=== PATIENT | female | born 1980 | race Two or more races ===

== ENCOUNTER 2016-06-23 20:58 | Emergency (ER) | payer BC ==
[~2016-06-23] VITALS: Ht 157.5 cm; Wt 49.9 kg
[2016-06-23] MEDS ORDERED: IV NORMAL SALINE 1000 ML BAG IV ONE (21:45)
[2016-06-23] MEDS ORDERED: ONDANSETRON 4 MG/2 ML VIAL IV ONE (21:45)
[2016-06-23] MEDS ORDERED: HYDROMORPHONE 1 MG/1 ML DISP.SYRIN IV ONE ×2 (21:45→22:30)
[2016-06-23 21:47] LABS: *BILIRUBIN,URIN NEGATIVE (NEGATIVE); *BLOOD, URINE Trace-intact (NEGATIVE); *CLARITY,URINE CLOUDY (CLEAR); *COLOR,URINE YELLOW (YELLOW); *KETONES,URINE 2+ (NEGATIVE); *PROTEIN,URINE TRACE (NEGATIVE); *URINE HCG, QUAL NEGATIVE (NEGATIVE); *UROBILINOGEN,URINE 0.2 E.U./dl (NORMAL); LEUKOCYTE ESTERASE ,URINE NEGATIVE (NEGATIVE); NITRITE, URINE NEGATIVE (NEGATIVE); PH,URINE 5.5 (5.0-8.0); UGLUCOSE NEGATIVE (NEGATIVE)
[2016-06-23] MEDS ORDERED: ONDANSETRON 4 MG/2 ML VIAL ONE ×2 (21:56→22:38)
[2016-06-23] MEDS ORDERED: HYDROMORPHONE 1 MG/1 ML DISP.SYRIN ONE ×2 (21:56→22:38)
[2016-06-23 21:58] LABS: BACTERIA,URINE MANY /HPF (NONE SEEN); SQUAMOUS EPITHELIAL CELL,UR MANY /HPF (NONE SEEN)
[2016-06-23 22:06] LABS: BASOPHILS # (AUTO) 0.1 K/uL (0.0-8.0); BASOPHILS % (AUTO) 0.6 % (0.0-2.0); EOSINOPHILS % (AUTO) 0.4 % (0.0-7.0); HEMATOCRIT 40.9 % (37-47); HEMOGLOBIN 14.2 G/DL (12.0-16.0); LYMPHOCYTES # (AUTO) 1.9 K/uL (20.0-40.0); LYMPHOCYTES % (AUTO) 15.5 % (20.5-51.5); MEAN CORPUSCULAR HEMOGLOBIN 30.6 UUG (27.0-31.0); MEAN CORPUSCULAR HGB CONC 35 g/dL (32.0-37.0); MEAN CORPUSCULAR VOLUME 88.2 FL (81.0-99.0); MONOCYTES # (AUTO) 0.7 K/uL (2.0-10.0); NEUTROPHILS # (AUTO) 9.7 K/uL (1.8-8.9); NEUTROPHILS % (AUTO) 77.5 % (38.5-71.5); PLATELET COUNT (AUTO) 204 K/UL (150-450); RED BLOOD CELL COUNT(AUTO) 4.63 MIL/UL (4.2-5.4); RED CELL DISTRIBUTION WIDTH 13.1 % (11.5-14.5); WHITE BLOOD COUNT (AUTO) 12.4 K/UL (4.0-11.2)
[2016-06-23 22:08] LABS: CALCIUM 9.2 mg/dL (8.5-10.1); CREATININE 0.6 mg/dL (0.6-1.3); POTASSIUM 3.7 mmol/L (3.5-5.1)
--- NOTE | 2016-06-23 22:10 | NUR ---
Patient to radiology for CT scan via gurney.
[2016-06-23 22:13] LABS: ALBUMIN 3.7 g/dL (3.4-5.0); BILIRUBIN,DIRECT 0.1 mg/dL (0.0-0.2); BILIRUBIN,TOTAL 0.4 mg/dL (0.2-1.0); TOTAL PROTEIN, SERUM 7.2 g/dL (6.4-8.2)
[2016-06-23] MEDS ORDERED: ONDANSETRON IV *ER 4 MG/2 ML VIAL IV ONE (22:15)
--- NOTE | 2016-06-23 22:21 | NUR ---
Patient returned from radiology, requesting additional medication for pain, ERMD notified, orders received.
[2016-06-23] MEDS ORDERED: PHENAZOPYRIDINE HCL 100 MG TABLET ONE (23:30)
[2016-06-23] MEDS ORDERED: SULFAMETH/TRIMETH 800/160 MG TABLET PO ONE (23:30)
[2016-06-23] MEDS ORDERED: PHENAZOPYRIDINE HCL 100 MG TABLET PO ONE (23:30)
[2016-06-23] MEDS ORDERED: SULFAMETH/TRIMETH 800/160 MG TABLET ONE (23:30)
[2016-06-23] MEDS ORDERED: ONDANSETRON ODT 4 MG TAB.RAPDIS ONE (23:37)
[2016-06-23] MEDS ORDERED: ONDANSETRON ODT 4 MG TAB.RAPDIS SL ONE (23:45)
--- NOTE | 2016-06-23 23:48 | NUR ---
Patient discharged to home in stable conditon. Written and verbal after care instructions given. Patient verbalizes understanding of instructions.
== END 2016-06-23 23:55 | disposition home or self-care (01) ==
LOC: ER 21:03
DX: N39.0 Urinary tract infection, site not specified (principal); F17.200 Nicotine dependence, unspecified, uncomplicated
CPT/HCPCS: 36415; 71010; 83690; 84703; 85025; A4663; J1170; J2405; J7030; Q0162

== ENCOUNTER 2020-04-19 11:42 | Emergency (ER) | payer BC ==
[~2020-04-19] VITALS: Ht 157.5 cm; Wt 46.3 kg
[2020-04-19] MEDS ORDERED: FAMOTIDINE. 20 MG/2 ML VIAL IV ONE ×2 (12:15→12:20)
[2020-04-19] MEDS ORDERED: MAG HYDROX/AL HYDROX/SIMETH 30 ML LIQUID UDC PO ONE (12:15)
[2020-04-19] MEDS ORDERED: MAG HYDROX/AL HYDROX/SIMETH 30 ML LIQUID UDC ONE (12:19)
[2020-04-19 12:33] LABS: BASOPHILS # (AUTO) 0.1 K/uL (0.0-8.0); BASOPHILS % (AUTO) 1.1 % (0.0-2.0); EOSINOPHILS % (AUTO) 0.7 % (0.0-7.0); HEMATOCRIT 35.2 % (31.2-41.9); HEMOGLOBIN 11.2 g/dL (10.9-14.3); LYMPHOCYTES # (AUTO) 1.5 K/uL (20.0-40.0); LYMPHOCYTES % (AUTO) 27.5 % (20.5-51.5); MEAN CORPUSCULAR HEMOGLOBIN 24.1 uug (24.7-32.8); MEAN CORPUSCULAR HGB CONC 32 g/dL (32.3-35.6); MEAN CORPUSCULAR VOLUME 76.2 fL (75.5-95.3); MONOCYTES # (AUTO) 0.4 K/uL (2.0-10.0); MONOCYTES % (AUTO) 7.6 % (0.0-11.0); NEUTROPHILS # (AUTO) 3.4 K/uL (1.8-8.9); NEUTROPHILS % (AUTO) 63.1 % (38.5-71.5); PLATELET COUNT (AUTO) 282 K/uL (179-408); RED BLOOD CELL COUNT(AUTO) 4.63 MIL/uL (3.63-4.92); WHITE BLOOD COUNT (AUTO) 5.4 K/uL (3.8-11.8)
[2020-04-19 12:42] LABS: ALANINE AMINOTRANSFERASE 23 U/L (14-59); ALKALINE PHOSPHATASE 69 U/L (50-136); ASPARTATE AMINOTRANSFERASE 15 U/L (15-37); BILIRUBIN,DIRECT 0.1 mg/dL (0.0-0.2); BILIRUBIN,TOTAL 0.2 mg/dL (0.2-1.0); CARBON DIOXIDE 26 mmol/L (21-32); CHLORIDE 105 mmol/L (98-107); CREATININE 0.7 mg/dL (0.6-1.3); GLUCOSE 95 mg/dL (74-106); LIPASE 108 U/L (73-393); TOTAL PROTEIN, SERUM 7.3 g/dL (6.4-8.2); UREA NITROGEN, BLOOD 11 mg/dL (7-18)
[2020-04-19 12:44] LABS: *BILIRUBIN,URIN NEGATIVE (NEGATIVE); *BLOOD, URINE NEGATIVE (NEGATIVE); *CLARITY,URINE CLEAR (CLEAR); *COLOR,URINE LIGHT YELLOW (YELLOW); *KETONES,URINE NEGATIVE (NEGATIVE); *UROBILINOGEN,URINE 0.2 E.U./dl (NORMAL); LEUKOCYTE ESTERASE ,URINE NEGATIVE (NEGATIVE); NITRITE, URINE NEGATIVE (NEGATIVE); PH,URINE 5.5 (5.0-8.0); UGLUCOSE NEGATIVE (NEGATIVE)
[2020-04-19 12:52] LABS: *AMPHETAMINE, URINE NEGATIVE (NEGATIVE); *CANNABINOID, URINE POSITIVE (NEGATIVE); *COCCAINE, URINE NEGATIVE (NEGATIVE); *OPIATE, URINE NEGATIVE (NEGATIVE); *PHENCYCLIDINE SCREEN,URINE NEGATIVE (NEGATIVE)
[2020-04-19] MEDS ORDERED: ONDANSETRON 4 MG/2 ML VIAL IV ONE (13:15)
[2020-04-19] MEDS ORDERED: ONDANSETRON 4 MG/2 ML VIAL ONE (13:26)
[2020-04-19] MEDS ORDERED: ONDA4TAB5 PO (13:46)
[2020-04-19] MEDS ORDERED: FAMO-132 PO (13:46)
[2020-04-19 14:53] VITALS: BP 104/83
== END 2020-04-19 14:45 | disposition home or self-care (01) ==
LOC: ER 11:42
DX: R10.13 Epigastric pain (principal); K76.0 Fatty (change of) liver, not elsewhere classified; Z87.19 Personal history of other diseases of the digestive system; Z86.19 Personal history of other infectious and parasitic diseases
CPT/HCPCS: 36415; 76700; 80048; 80076; 80307; 81003; 83690; 84702; 85025; 96374; 96375; 99284; J2405; J3490; A4663